=== PATIENT | female | born 1985 | race Two or more races ===

== ENCOUNTER 2016-12-27 08:58 | Emergency (ER) | payer OTHER ==
[2016-12-27 09:01] VITALS: TEMP 98.3; BMI 31.7
--- NOTE | 2016-12-27 11:02 | PDOC ---
History of Present Illness - General Chief Complaint: Vaginal Bleeding Stated Complaint: VAGINAL BLEEDING Time Seen by Provider: 12/27/16 10:26 History Source: Patient Exam Limitations: No Limitations - History of Present Illness Initial Comments: 12/27/16 11:02 My chief complaint: Severe rectal pain 2 days with menstruation History of present illness: She is a 31-year-old female with a history of uterine fibroids here today complaining of severe rectal pain 2 days with menstruation. Patient reports that she has gotten severe rectal pain with menstruation for years. Patient reports that her period is regular monthly and started 2 days ago. Patient reports that she has bowel movement 3 or 4 times one week that is hard and brown with no rectal bleeding. Patient reports that she has been seen in the past at [facility] was given a prescription for glycerin suppositories the patient is without any relief of symptoms. Patient reports having taken Naprosyn and ibuprofen today with minimal relief of pain. Patient denies that pain is worse with passage of bowel movement. Patient reports having fibroids laser surgery June 2016. 12/27/16 11:24 12/27/16 16:59 12/27/16 18:05 Timing/Duration: intermittent (when having menses for years ) Severity: severe (rectal pain) Associated Symptoms: reports: other (straining with BM) Past History - Past Medical History Allergies/Adverse Reactions: Allergies Allergy/AdvReac Type Severity Reaction Status Date / Time No Known Allergies Allergy Verified 12/27/16 09:01 Home Medications: Ambulatory Orders Polyethylene Glycol 3350 [Miralax 255 gm Btl -] 17 gm PO DAILY #1 bottle Tramadol HCl [Ultram] 50 mg PO Q8H PRN #6 tablet MDD 3 12/27/16 Disorders: Yes (fibroids ) - Surgical History Other Surgical History: 12/27/16 11:20 C section lazor surgery for fibroids 07/0912/27/16 11:20 - Suicide/Smoking/Psychosocial Hx Smoking History: Current some day smoker Number of Cigarettes Smoked Daily: 2 Information on smoking cessation initiated: Yes 'Breaking Loose' booklet given: 12/27/16 Hx Alcohol Use: No Drug/Substance Use Hx: No Substance Use Type: None Review of Systems - Review of Systems Able to Perform ROS?: Yes Constitutional: No: Symptoms Reported HEENTM: No: Symptoms Reported Respiratory: No: Symptoms reported Cardiac (ROS): No: Symptoms Reported ABD/GI: Yes: Other (hard stool brown, straining with BM, BM EVERY 2-3 DAYS ) : Yes: Other (rectal pain when having menses for years) Musculoskeletal: No: Symptoms Reported Integumentary: No: Symptoms Reported Neurological: No: Symptoms reported *Physical Exam - Vital Signs Last Vital Signs Temp Pulse Resp BP Pulse Ox 98.3 F 60 18 144/93 100 12/27/16 08:59 12/27/16 08:59 12/27/16 08:59 12/27/16 08:59 12/27/16 08:59 - Physical Exam General Appearance: Yes: Appropriately Dressed Respiratory/Chest: positive: Lungs Clear, Normal Breath Sounds. negative: Chest Tender, Respiratory Distress Cardiovascular: positive: Regular Rhythm, Regular Rate, S1, S2 Gastrointestinal/Abdominal: positive: Normal Bowel Sounds, Tender (SUPRAPUBIC), Soft, Tenderness (SUPRAPUBIC AREA). negative: Organomegaly, Increased Bowel Sounds, Decreased BS, Distended, Guarding, Rebound, Hernia, Mass, Hepatomegaly, Spleenomegaly Rectal Exam: positive: normal rectal tone, other (no anal fissure noted,). negative: decreased tone, hemorrhoids Integumentary: positive: Normal Color Neurologic: positive: Alert, Normal Response, Responsive Medical Decision Making - Medical Decision Making 12/27/16 11:26 She is a 31-year-old female with a history of uterine fibroids here today complaining of severe rectal pain 2 days with menstruation. Patient reports that she has gotten severe rectal pain with menstruation 4 years. Patient reports that her period is regular monthly and started 2 days ago. Patient reports that she has bowel movement 3 or 4 times one week that is hard and brown with no rectal bleeding. Patient reports that she has been seen in the past at [facility] was given a prescription for glycerin suppositories the patient is without any relief of symptoms. Patient reports having taken Naprosyn and ibuprofen today with minimal relief of pain. Patient denies that pain is worse with passage of bowel movement. Patient reports having fibroids laser surgery June 2016. R/O RECURRENT FIBROIDS R/O HEMORRHOIDS no external hemorrhoids noted constipation PLAN: URINE HCG negative ACETAMINOPHEN 975MG PO hhemocult not done due to vaginal bleeding 12/27/16 13:54 follow up with [facility] Follow up with gastrointestinal doctor miralax 17 gm in 8 oz water daily 12/27/16 14:28 pt. urinated forgot to give sample US pelvic/abdomen 2.7 cm uterine lesion most suggestive of leiomyomas per Dr. Goode 12/27/16 17:01 12/27/16 17:15 Toradol 60 mg IM now 12/27/16 17:17 12/27/16 18:05 feeling less pain presenty pt. requesting something stronger than ibuprofen for pain at home will give ultram 50 mg every 8 hrs prn severe pain # 6 12/27/16 18:07 12/28/16 11:49 *DC/Admit/Observation/Transfer Diagnosis at time of Disposition: Fibroid, uterine Qualifiers: Uterine leiomyoma location: unspecified location Qualified Code(s): D25.9 - Leiomyoma of uterus, unspecified Constipation Qualifiers: Constipation type: unspecified constipation type Qualified Code(s): K59.00 - Constipation, unspecified - Discharge Dispostion Disposition: HOME Condition at time of disposition: Stable - Prescriptions Prescriptions: Polyethylene Glycol 3350 [Miralax 255 gm Btl -] 17 gm PO DAILY #1 bottle Tramadol HCl [Ultram] 50 mg PO Q8H PRN #6 tablet MDD 3 PRN Reason: Severe Pain - Referrals Referrals: Jose Alfredo Moreno MD [Staff Physician] - - Patient Instructions Additional Instructions: [facility] as [facility] Follow up gastrointestinal doctor for further evaluation due to your constipation Drink a lot a fluids especially water at least 8 glasses daily and eat fresh fruits and vegetables daily Ibuprofen as needed as directed by boxing instructor for pain Return if symptoms or new symptoms develop Patient voiced understanding of discharge instructions and all questions were answered Seguimiento con los colegios de ginecologa law pronto bakari sea posible Seguimiento mdico gastrointestinal para elayne evaluacin posterior debido a kaur estreimiento Sonia mucho lquidos, especialmente agua por lo menos 8 vasos diarios y comer frutas y verduras frescas diariamente Ibuprofen cuando sea necesario bakari lo indique el fabricante para el dolor Regresar si aparecen sntomas o nuevos sntomas Comprensin del paciente sobre las instrucciones de marshall y todas las preguntas fueron contestadas
[2016-12-27] MEDS ORDERED: ACETAMINOPHEN 325 MG TABLET (FP) PO ONE (11:18)
[2016-12-27] MEDS ORDERED: ACETAMINOPHEN 325 MG TABLET (FP) ONE (11:39)
[2016-12-27] MEDS ORDERED: KETOROLAC TROMETHAMINE 60 MG/2 ML VIAL IM ONE (17:15)
[2016-12-27] MEDS ORDERED: KETOROLAC TROMETHAMINE 60 MG/2 ML VIAL ONE (17:30)
--- NOTE | 2016-12-27 17:38 | PDOC ---
*Physical Exam - Vital Signs Last Vital Signs Temp Pulse Resp BP Pulse Ox 98.3 F 60 18 144/93 100 12/27/16 08:59 12/27/16 08:59 12/27/16 08:59 12/27/16 08:59 12/27/16 08:59 ED Treatment Course - ADDITIONAL ORDERS Additional order review: Laboratory Results 12/27/16 11:17 Urine HCG, Qual Negative - Medications Given in the ED: ED Medications Discontinued Medications Generic Name Dose Route Start Last Admin Trade Name Alex PRN Reason Stop Dose Admin Acetaminophen 975 mg 12/27/16 11:18 12/27/16 11:44 Tylenol - PO 12/27/16 11:19 975 mg ONCE ONE Administration Ketorolac Tromethamine 60 mg 12/27/16 17:15 12/27/16 17:35 Toradol Injection - IM 12/27/16 17:16 60 mg NOW ONE Administration Medical Decision Making - Medical Decision Making 12/27/16 17:37 Pt seen by the Advanced Practice Provider under my direct supervision Ancillary studies reviewed I agree with plan as outlined by the Advanced Practice Provider *DC/Admit/Observation/Transfer Diagnosis at time of Disposition: Fibroid, uterine Qualifiers: Uterine leiomyoma location: unspecified location Qualified Code(s): D25.9 - Leiomyoma of uterus, unspecified Constipation Qualifiers: Constipation type: unspecified constipation type Qualified Code(s): K59.00 - Constipation, unspecified - Discharge Dispostion Condition at time of disposition: Stable - Prescriptions Prescriptions: Polyethylene Glycol 3350 [Miralax 255 gm Btl -] 17 gm PO DAILY #1 bottle - Referrals Referrals: Jose Alfredo Moreno MD [Staff Physician] - - Patient Instructions Additional Instructions: [facility] with [facility] as soon as possible Follow up gastrointestinal doctor for further evaluation due to your constipation Drink a lot a fluids especially water at least 8 glasses daily and eat fresh fruits and vegetables daily Ibuprofen as needed as directed by boat joiner for pain Return if symptoms or new symptoms develop Patient voiced understanding of discharge instructions and all questions were answered Seguimiento con los colegios de ginecologa law pronto bakari sea posible Seguimiento mdico gastrointestinal para elayne evaluacin posterior debido a kaur estreimiento Sonia mucho lquidos, especialmente agua por lo menos 8 vasos diarios y comer frutas y verduras frescas diariamente Ibuprofen cuando sea necesario bakari lo indique el fabricante para el dolor Regresar si aparecen sntomas o nuevos sntomas Comprensin del paciente sobre las instrucciones de marshall y todas las preguntas fueron contestadas - Post Discharge Activity
[2016-12-27 17:40] VITALS: BP 139/78; PULSE 74
== END 2016-12-27 18:00 | disposition home or self-care (01) ==
LOC: JER 08:58
PROC: 3E0233Z Introduction of Anti-inflammatory into Muscle, Percutaneous Approach (ICD-10-PCS; principal; 2016-12-27)
DX: D25.9 Leiomyoma of uterus, unspecified (principal); K59.00 Constipation, unspecified
CPT/HCPCS: 76856-TC; 84703; 99282-25

== ENCOUNTER 2017-07-02 05:59 | Emergency (ER) | payer OTHER ==
[2017-07-02 06:11] VITALS: BMI 28.5
--- NOTE | 2017-07-02 07:18 | PDOC ---
History of Present Illness - General Chief Complaint: Pain Stated Complaint: ABD PAIN Time Seen by Provider: 07/02/17 06:51 - History of Present Illness Initial Comments: 07/02/17 07:57 The patient is a 32 year old female with no significant PMH who presents for evaluation of abdominal pain. The patient reports a 1 day history of poorly described abdominal pain with radiation to her back with associated diarrhea and increased urinary frequency. The patient reports continued symptoms with poor appetite over the past 1 day prompting her presentation to the ED for evaluation. The patient otherwise denies chills, SOB, chest pain, nausea, vomiting, or vaginal discharge or bleeding. The patient's LMP was 06/12/17. Past History - Past Medical History Allergies/Adverse Reactions: Allergies Allergy/AdvReac Type Severity Reaction Status Date / Time No Known Allergies Allergy Verified 07/02/17 06:11 Home Medications: Ambulatory Orders Ondansetron [Zofran Odt -] 4 mg SL TID PRN #21 od.tablet 07/02/17 COPD: No Disorders: Yes (fibroids ) - Suicide/Smoking/Psychosocial Hx Smoking History: Never smoked Have you smoked in the past 12 months: No Number of Cigarettes Smoked Daily: 2 Information on smoking cessation initiated: No 'Breaking Loose' booklet given: 12/27/16 Hx Alcohol Use: No Drug/Substance Use Hx: No Substance Use Type: None Review of Systems - Review of Systems Comments:: 07/02/17 08:11 Constitutional: Fever. No chills, fatigue, malaise HEENT: No Rhinorrhea, nasal congestion, visual changes Cardiovascular: No chest pain, syncope, palpitations, lightheadedness Respiratory: No Cough, SOB, Hemoptysis, Gastrointestinal: Abdominal pain, Diarrhea. No Nausea, Vomiting, Constipation, Melena Genitourinary: Increase urinary frequency. No Dysuria, Urgency, Hesitancy, Hematuria, Flank pain Musculoskeletal: No Myalgia, arthralgia Skin: No rashes, itching, bruising, pallor Neurologic: No Headache, Dizziness, Numbness, Weakness, or Tingling Psychiatric: No Hallucinations. No SI or HI *Physical Exam - Vital Signs Last Vital Signs Temp Pulse Resp BP Pulse Ox 100.5 F H 64 18 130/90 99 07/02/17 06:02 07/02/17 06:02 07/02/17 06:02 07/02/17 06:02 07/02/17 06:02 - Physical Exam Comments: 07/02/17 08:13 General Appearance: Nourished. No Apparent Distress HEENT: EOMI, BELLA. No Pharyngeal Erythema, Tonsillar Exudate, Tonsillar Erythema Neck: No Cervical Lymphadenopathy Respiratory/Chest: Lungs Clear, Normal Breath Sounds. No Crackles, Rales, Rhonchi, Wheezing Cardiovascular: Regular Rhythm, Regular Rate. No Murmur, Gallops, Rubs Gastrointestinal/Abdominal: Normal Bowel Sounds, Soft. Suprapubic tenderness to palpation. No Guarding, Rebound, Musculoskeletal: No CVA Tenderness Extremity: Normal Capillary Refill Integumentary: Normal Color, Dry, Warm Neurologic: Fully Oriented, Alert, Normal Mood/Affect, Normal Response, ED Treatment Course - LABORATORY CBC & Chemistry Diagram: 07/02/17 08:00 07/02/17 08:00 Medical Decision Making - Medical Decision Making 07/02/17 08:14 The patient is a 32 year old female with no significant PMH who presents for evaluation of abdominal pain. Differential includes but is not limited to: Pancreatitis, UTI, Gastroenteritis, infectious, metabolic derangement. Given the patient's physical exam and history, it is possible her symptoms are due to a UTI. We will obtain a cbc, cmp, ua, urine preg, lipase to evaluate further. We will treat with iv fluids and tylenol here in the ED in the meantime and continue to monitor and reassess. 07/02/17 09:43 CBC, cmp, ua, urine preg, lipase are unremarkable. The patient reports some improvement in her symptoms. It is likely her symptoms are due to a viral gastroenteritis. We are comfortable discharging the patient home at this time with primary care provider follow up. We discussed the results, plan and return precautions with the patient who voiced understanding and is agreeable with the plan. *DC/Admit/Observation/Transfer Diagnosis at time of Disposition: Viral gastroenteritis - Discharge Dispostion Disposition: HOME Condition at time of disposition: Good Admit: No - Prescriptions Prescriptions: Ondansetron [Zofran Odt -] 4 mg SL TID PRN #21 od.tablet PRN Reason: Nausea - Referrals Referrals: Tom Juarez MD [Staff Physician] - - Patient Instructions Printed Discharge Instructions: DI for Viral Gastroenteritis -- Adult Additional Instructions: Please return to the ER if you experience concerning or worsening symptoms including worsening fevers, abdominal pain, or vomiting. Your lab results were normal here in the ER. Your symptoms are likely due to a viral illness. We have sent a prescription to your pharmacy for an anti-nausea medication that you may take three times a day. Please continue to drink plenty of fluids as well. Please call to schedule a follow up appointment with your primary care provider within 2-3 days to discuss your ER visit and further management of your symptoms. Por favor, regrese a la mary de emergencias si experimenta problemas o empeoramiento de los sntomas incluyendo empeoramiento de las fiebres, dolor abdominal o vmitos. Los resultados de tu laboratorio fueron normales aqu en urgencias. Ashly s ntomas probablemente se deban a elayne enfermedad viral. Hemos enviado elayne prescripcin a kaur farmacia para un medicamento anti-nuseas que usted puede sheila almas veces al da. Por favor, contine bebiendo muchos lquidos tambin. Por favor llame para programar elayne brian de seguimiento con kaur proveedor de atencin primaria en un plazo de 2-3 velazquez para discutir kaur visita de urgencias y la administracin de ashly sntomas. Print Language: KOREAN - Post Discharge Activity
[2017-07-02] MEDS ORDERED: SODIUM CHLORIDE 1,000 ML IV STA (07:19)
[2017-07-02] MEDS ORDERED: ACETAMINOPHEN 1000 MG/100 ML VIAL (NON FORMULARY) IVPB ONE (07:20)
[2017-07-02] MEDS ORDERED: ACETAMINOPHEN INJECTION 100 ML IVPB ONE (08:23)
[2017-07-02 08:37] LABS: BASO % 0.1 % (0-2.0); EOS % 0.2 % (0-4.5); HEMATOCRIT 33.3 % (32.4-45.2); HEMOGLOBIN 10.5 GM/dL (10.7-15.3); LYMPH % 14.9 % (8-40); MCH 23.8 pg (25.7-33.7); MCHC 31.4 g/dl (32.0-36.0); MEAN CELL VOLUME 75.9 fl (80-96); MEAN PLT VOLUME 8.5 fl (7.5-11.1); MONO % 7.7 % (3.8-10.2); NEUT % 77.1 % (42.8-82.8); PLATELET COUNT 237 K/MM3 (134-434); RBC 4.39 M/mm3 (3.60-5.2); RDW 25.3 % (11.6-15.6)
[2017-07-02 08:59] LABS: URINE APPEARANCE CLEAR; URINE BILIRUBIN NEGATIVE (<2.0 mg/dL); URINE BLOOD NEGATIVE (NEGATIVE); URINE COLOR LTYELLOW; URINE GLUCOSE (UA) NEGATIVE (NEGATIVE); URINE KETONE NEGATIVE (NEGATIVE); URINE LEUK ESTERASE NEGATIVE (NEGATIVE); URINE NITRITE NEGATIVE (NEGATIVE); URINE UROBILINOGEN NEGATIVE mg/dL (0.2-1.0)
[2017-07-02 09:00] LABS: ALBUMIN 3.5 g/dl (3.4-5.0); ALK PHOS 76 U/L (45-117); ANION GAP 10 (8-16); BILIRUBIN,TOTAL 0.5 mg/dL (0.2-1.0); BLOOD UREA NITROGEN 7 mg/dL (7-18); CALCIUM 8.3 mg/dL (8.5-10.1); CHLORIDE 106 mmol/L (98-107); CO2 22 mmol/L (21-32); CREATININE 0.9 mg/dL (0.55-1.02); GLUCOSE,RANDOM 91 mg/dL (74-106); HCG,QUALITATIVE URINE NEGATIVE; LIPASE 157 U/L (73-393); POTASSIUM 3.8 mmol/L (3.5-5.1); SGOT/AST 17 U/L (15-37); SGPT/ALT 24 U/L (12-78); SODIUM 138 mmol/L (136-145); TOT PROT 7.4 g/dl (6.4-8.2)
[2017-07-02 09:01] LABS: URINE PROTEIN 1+ (NEGATIVE)
[2017-07-02 09:03] LABS: EPI CELLS FEW /HPF (FEW); URINE BACTERIA RARE /hpf (NONE SEEN); URINE MUCUS RARE
--- NOTE | 2017-07-02 09:41 | PDOC ---
Attending Attestation - Resident Resident Name: GenevieveJevon - ED Attending Attestation I have performed the following: I have examined & evaluated the patient, The case was reviewed & discussed with the resident, I agree w/resident's findings & plan - HPI HPI: 07/02/17 09:37 32-year-old healthy female presents with intermittent, crampy, diffuse abdominal pain since yesterday with some nausea and diarrhea. Watery and nonbloody, pain peaks prior to bowel movements and then improves after bowel movements. Nausea but no vomiting, slightly decreased appetite. No localized or persistent pain, some chills and low-grade fever, reported some urinary frequency but no dysuria or hematuria. LMP 06/15. Patient states she had a large meal at her family member's house 2 days ago, otherwise denies any sick contacts, travel, recent antibiotics. No history of recurring GI infections or surgeries other than . No other family members are ill. - Physicial Exam PE: 07/02/17 09:39 Low-grade temp 100.5, vital signs are otherwise normal Well-appearing, moist mucosa No jaundice or pallor Soft/nondistended. Diffuse discomfort to palpation without focal guarding or rebound. Bowel sounds are normal. No CVA tenderness - Medical Decision Making 07/02/17 09:39 Patient seen and evaluated with the resident. I agree with the overall evaluation, assessment, and management with the following summary of visit: 32-year-old female presents with nausea/diarrhea/abdominal cramping since yesterday. Presents with low-grade fever, otherwise hemodynamically stable and well-appearing without red flags on history or physical exam. No findings suspicious for focal infectious process, presentation seems most consistent with gastroenteritis. Rule out UTI. urine negative No leukocytosis, normal LFTs, normal lipase Feels better after Tylenol, received IV fluids, tolerating by mouth, abdomen remains benign, agrees with discharge and understands return criteria.
[2017-07-02 10:08] VITALS: BP 105/77; PULSE 85; TEMP 99.3
== END 2017-07-02 10:08 | disposition home or self-care (01) ==
LOC: JER 05:59
PROC: 3E0337Z Introduction of Electrolytic and Water Balance Substance into Peripheral Vein, Percutaneous Approach (ICD-10-PCS; principal; 2017-07-02)
PROC: 3E033NZ Introduction of Analgesics, Hypnotics, Sedatives into Peripheral Vein, Percutaneous Approach (ICD-10-PCS; 2017-07-02)
DX: A08.4 Viral intestinal infection, unspecified (principal); B97.89 Other viral agents as the cause of diseases classified elsewhere
CPT/HCPCS: 36415; 80053; 81003; 81015; 83690; 84703; 85025; 87086; 96361; 96374; 99283-25; J0131; J7030

== ENCOUNTER 2018-01-24 10:35 | Emergency (ER) | payer OTHER ==
[2018-01-24 10:59] VITALS: BP 135/83; PULSE 79; TEMP 98.8; BMI 28.5
--- NOTE | 2018-01-24 12:04 | PDOC ---
History of Present Illness - General Chief Complaint: Pain Stated Complaint: PAIN Time Seen by Provider: 01/24/18 11:43 History Source: Patient Exam Limitations: No Limitations - History of Present Illness Travel History: No Initial Comments: 01/24/18 11:59 33 yr female no past medical history with c/o rectal pain every month with her menstrual cycle for 6-7 months. pt denies abd pain. denies heavy bleeding or clots. Pt denies seeing a glass washer. Timing/Duration: reports: constant Quality: reports: moderate, stabbing Abdominal Pain Onset Location: reports: other (rectal) Past History - Past Medical History Allergies/Adverse Reactions: Allergies Allergy/AdvReac Type Severity Reaction Status Date / Time No Known Allergies Allergy Verified 01/24/18 10:57 Home Medications: Ambulatory Orders Naproxen [Naprosyn -] 500 mg PO BID PRN #14 tablet 01/24/18 COPD: No Disorders: Yes (fibroids ) - Suicide/Smoking/Psychosocial Hx Smoking History: Never smoked Have you smoked in the past 12 months: No Number of Cigarettes Smoked Daily: 2 'Breaking Loose' booklet given: 12/27/16 Hx Alcohol Use: No Drug/Substance Use Hx: No Substance Use Type: None Abd/GI Specific PMHX - Complaint Specific PMHX Colitis: No Diverticulitis: No Gall Bladder Disease: No GERD: No Hepatitis: No Irritable Bowel Synd (IBS): No Pancreatitis: No GI Ulcer Disease: No Review of Systems - Review of Systems Able to Perform ROS?: Yes Is the patient limited Thai proficient: No ABD/GI: Yes: Other (rectal pain). No: Abdominal Distended, Blood Streaked Bowels, Constipated, Diarrhea, Nausea, Poor Fluid Intake, Rectal Bleeding, Abdominal cramping : No: Symptoms Reported Musculoskeletal: No: Symptoms Reported Integumentary: No: Symptoms Reported Neurological: No: Symptoms reported *Physical Exam - Vital Signs Last Vital Signs Temp Pulse Resp BP Pulse Ox 98.8 F 79 18 135/83 100 01/24/18 10:57 01/24/18 10:57 01/24/18 10:57 01/24/18 10:57 01/24/18 10:57 - Physical Exam General Appearance: Yes: Nourished, Appropriately Dressed HEENT: positive: EOMI, BELLA Neck: positive: Supple Respiratory/Chest: positive: Lungs Clear, Normal Breath Sounds Cardiovascular: positive: Regular Rhythm, Regular Rate Female Pelvic Exam: positive: normal external exam, vaginal bleeding Gastrointestinal/Abdominal: positive: Normal Bowel Sounds, Soft. negative: Tender Rectal Exam: positive: normal rectal tone (tender on exam, no hemorrhoid), other (no evidence of abscess, neg perirectal or pilonidal tenderness ) Musculoskeletal: positive: Normal Inspection Extremity: positive: Normal Capillary Refill, Normal Inspection, Normal Range of Motion Integumentary: positive: Normal Color, Dry, Warm Neurologic: positive: Fully Oriented, Alert, Normal Mood/Affect, Normal Response , Motor Strength 07/27 ED Treatment Course - RADIOLOGY Radiology Studies Ordered: Category Date Time Status TRANSVAGINAL ULTRASOUND US [US] Stat Ultrasound 01/24/18 11:55 Ordered Medical Decision Making - Medical Decision Making 01/24/18 12:03 cc: rectal pain with menses started yesterday, this occurrs every month with menses pt states for about 6 months pt denies rectal bleeding or abd pain pt has not seen a cafe manager for this pain will r/o and get pelvic transvaginal US refer to cafe manager 01/24/18 12:06 01/24/18 14:19 pt feels better after toradol states pain 05/04 from 01/01 on arrival. results given to patient dc inst discussed pt agrees to follow with cafe manager for further care. *DC/Admit/Observation/Transfer Diagnosis at time of Disposition: Fibroid, uterine Qualifiers: Uterine leiomyoma location: unspecified location Qualified Code(s): D25.9 - Leiomyoma of uterus, unspecified Menorrhagia Qualifiers: Menorrahagia type: with regular cycle Qualified Code(s): N92.0 - Excessive and frequent menstruation with regular cycle - Discharge Dispostion Disposition: HOME Condition at time of disposition: Good - Prescriptions Prescriptions: Naproxen [Naprosyn -] 500 mg PO BID PRN #14 tablet PRN Reason: Pain - Referrals Referrals: Anita Ardon [Primary Care Provider] - Mis Miranda MD [Staff Physician] - - Patient Instructions Additional Instructions: follow with the glass washer for further management of your pain call today to make appointment take naprosyn for pain as needed return to ER for any worsening symptoms - Post Discharge Activity Forms/Work/School Notes: Back to Work
[2018-01-24] MEDS ORDERED: KETOROLAC TROMETHAMINE 60 MG/2 ML VIAL IM ONE (12:56)
[2018-01-24] MEDS ORDERED: KETOROLAC TROMETHAMINE 60 MG/2 ML VIAL ONE (13:03)
== END 2018-01-24 13:53 | disposition home or self-care (01) ==
LOC: JER 10:35 → JERFT 10:35
PROC: 3E0233Z Introduction of Anti-inflammatory into Muscle, Percutaneous Approach (ICD-10-PCS; principal; 2018-01-24)
DX: D25.9 Leiomyoma of uterus, unspecified (principal); N92.0 Excessive and frequent menstruation with regular cycle
CPT/HCPCS: 76830-TC; 84703; 96372; 99281-25

== ENCOUNTER 2018-07-20 17:41 | Emergency (ER) | payer OTHER ==
[2018-07-20 17:47] VITALS: BP 141/92; PULSE 61; TEMP 98.3; BMI 31.7
--- NOTE | 2018-07-20 19:36 | PDOC ---
History of Present Illness - General Chief Complaint: Pain Stated Complaint: STOMACH & BACK PAIN Time Seen by Provider: 07/20/18 19:32 - History of Present Illness Initial Comments: 07/20/18 19:43 The patient is a 33 year old female with no significant PMH who presents for evaluation of abdominal pain. The patient reports a 1 day history of poorly described epigastric abdominal pain with associated nausea prompting her presentation to the ED for further evaluation. She denies any exacerbating or relieving factors and otherwise denies fevers, chills, SOB, chest pain, vomiting , or changes with urination or bowel movements. Past History - Past Medical History Allergies/Adverse Reactions: Allergies Allergy/AdvReac Type Severity Reaction Status Date / Time No Known Allergies Allergy Verified 07/20/18 17:47 Home Medications: Ambulatory Orders Naproxen [Naprosyn -] 500 mg PO BID PRN #14 tablet 01/24/18 Famotidine [Pepcid -] 20 mg PO DAILY #20 tablet 07/20/18 Melatonin 3 mg PO HS 07/20/18 COPD: No Disorders: Yes (fibroids ) - Suicide/Smoking/Psychosocial Hx Smoking History: Never smoked Have you smoked in the past 12 months: No Number of Cigarettes Smoked Daily: 2 'Breaking Loose' booklet given: 12/27/16 Hx Alcohol Use: No Drug/Substance Use Hx: No Substance Use Type: None Review of Systems - Review of Systems Comments:: 07/20/18 19:46 Constitutional: No fevers, chills, fatigue, malaise HEENT: No Rhinorrhea, nasal congestion, visual changes Cardiovascular: No chest pain, syncope, palpitations, lightheadedness Respiratory: No Cough, SOB, Hemoptysis, Gastrointestinal: Abdominal pain, Nausea, No Vomiting, Constipation, Diarrhea, Melena Genitourinary: No Dysuria, Frequency, Urgency, Hesitancy, Hematuria, Flank pain Musculoskeletal: No Myalgia, arthralgia Skin: No rashes, itching, bruising, pallor Neurologic: No Headache, Dizziness, Numbness, Weakness, or Tingling Psychiatric: No Hallucinations. No SI or HI *Physical Exam - Vital Signs Last Vital Signs Temp Pulse Resp BP Pulse Ox 98.3 F 61 18 141/92 100 07/20/18 17:43 07/20/18 17:43 07/20/18 17:43 07/20/18 17:43 07/20/18 17:43 - Physical Exam Comments: 07/20/18 19:47 General Appearance: Nourished. No Apparent Distress HEENT: No Pharyngeal Erythema, Tonsillar Exudate, Tonsillar Erythema Neck: No Cervical Lymphadenopathy Respiratory/Chest: Lungs Clear, Normal Breath Sounds. No Crackles, Rales, Rhonchi, Wheezing Cardiovascular: Regular Rhythm, Regular Rate. No Murmur, Gallops, Rubs Gastrointestinal/Abdominal: Normal Bowel Sounds, Soft. Mild Epigastric tenderness to palpation. No RUQ tenderness to palpation. No Guarding, Rebound , Musculoskeletal: No CVA Tenderness Extremity: Normal Capillary Refill Integumentary: Normal Color, Dry, Warm Neurologic: Fully Oriented, Alert, Normal Mood/Affect, Normal Response, ED Treatment Course - LABORATORY CBC & Chemistry Diagram: 07/20/18 20:20 07/20/18 20:20 Medical Decision Making - Medical Decision Making 07/20/18 19:47 The patient is a 33 year old female with no significant PMH who presents for evaluation of abdominal pain. Differential includes but is not limited to: Gastritis, UTI, Gastroenteritis, Infectious, Metabolic Derangement. Given the patient's history and physical exam, we will obtain a cbc, cmp, lipase, UA, urine preg to evaluate further. We will treat with iv fluids, pepcid, zofran, maalox and continue to monitor and reassess while here in the ED. 07/20/18 23:46 CBC, cmp, lipase, ua, urine preg are unremarkable. The patient was reassessed and reports improvement in their symptoms. We are comfortable discharging the patient home in stable condition. Patient and family made aware of impression and plan, return precautions discussed including but not limited to worsening pain or symptoms, fevers, or signs of infection, chest pain, respiratory distress, inability to tolerate oral intake, dehydration, syncope, or neurologic changes. The patient is to follow up with PMD as recommended within 1 week, follow up information provided and the patient will call for an appointment. The patient is to take medications as instructed for duration of time and continue with supportive care, avoid triggers and precipitants. Patient is safe for outpatient follow-up. *DC/Admit/Observation/Transfer Diagnosis at time of Disposition: Abdominal pain Qualifiers: Abdominal location: unspecified location Qualified Code(s): R10.9 - Unspecified abdominal pain - Discharge Dispostion Disposition: HOME Condition at time of disposition: Stable - Prescriptions Prescriptions: Famotidine [Pepcid -] 20 mg PO DAILY #20 tablet - Referrals Referrals: Niyah Roblero DO [Staff Physician] - - Patient Instructions Printed Discharge Instructions: DI for Abdominal Pain-Adult Additional Instructions: 1) Please follow-up with your primary care doctor in the next 2-3 days. Please call tomorrow to schedule a follow up appointment. If you cannot follow up with your doctor within 1 week please return to the Emergency Department for any urgent issues. 2) Your laboratory results were normal here in the ER. 3) If you have any worsening of symptoms or any other concerns please return to the ER immediately. Return if worsening symptoms including fevers, headache, vomiting, visual or hearing disturbances, abdominal pain, chest pain, shortness of breath, syncope, dehydration, inability to take things by mouth/vomiting, altered mental status, or worsening concerning symptoms. 4) Please continue taking your home medications as directed. Your medications on discharge include Pepcid. 1) por favor, farzaneh un seguimiento con kaur mdico de atencin primaria en los prximos 2-3 velazquez. Por favor llame maana para programar elayne brian de seguimiento. Si no puede hacer un seguimiento con kaur mdico dentro de 1 semana, por favor regrese al Departamento de emergencias para cualquier problema urgente. 2) los resultados de kaur laboratorio fueron normales aqu en urgencias. 3) si usted tiene cualquier empeoramiento de los sntomas o cualquier otra inquietud por favor regrese a la ER inmediatamente. Regrese si empeora los sntomas incluyendo fiebres, dolor de nguyen, vmitos, alteraciones visuales o auditivas, dolor abdominal, dolor en el pecho, dificultad para respirar, sncope , deshidratacin, incapacidad para sheila las cosas por la boca/vmitos, alteracin del estado mental o empeoramiento Acerca de los sntomas. 4) por favor, siga tomando jdaen medicamentos caseros segn las indicaciones. Los medicamentos que se descargan incluyen Pepcid. - Post Discharge Activity
[2018-07-20] MEDS ORDERED: MAG HYDROX/AL HYDROX/SIMETH 30 ML UNIT-DOSE CUP PO ONE (19:38)
[2018-07-20] MEDS ORDERED: ONDANSETRON 4 MG/2 ML VIAL IVPUSH ONE (19:38)
[2018-07-20] MEDS ORDERED: SODIUM CHLORIDE 1,000 ML IV STA (19:38)
[2018-07-20] MEDS ORDERED: FAMOTIDINE 20 MG/50 ML IVPB 20 MG/50 ML MG IVPB ONE ×2 (20:00→20:22)
--- NOTE | 2018-07-20 20:02 | PDOC ---
Documentation entered by Joaquina Duque SCRIBE, acting as scribe for Taisha Manzo MD. Taisha Manzo MD: This documentation has been prepared by the [employer], SCRIBE, under my direction and personally reviewed by me in its entirety. I confirm that the documentation accurately reflects all work, treatment, procedures, and medical decision making performed by me. Attending Attestation - Resident Resident Name: Jevon Vallejo - ED Attending Attestation I have performed the following: I have examined & evaluated the patient, The case was reviewed & discussed with the resident, I agree w/resident's findings & plan - HPI HPI: 07/20/18 19:41 The patient is a 33 YOF with no PMH who presents to the ED for evaluation of epigastric pain and nausea that began yesterday. The patient denies chest pain, shortness of breath, headache and dizziness. Denies fever, chills, vomit, diarrhea and constipation. Denies dysuria, frequency, urgency and hematuria. Allergies: NKDA Social Hx: Denies toxic habits. Surgeries: None reported. - Physicial Exam PE: 07/20/18 21:41 ADULT EXAM GENERAL: Awake, alert, and fully oriented, (+) in mild distress (+) obese EYES: PERRLA, EOMI, sclera anicteric, conjunctiva clear ENT: Auricles normal inspection, hearing grossly normal, nares patent. Moist mucosa LUNGS: Breath sounds equal, clear to auscultation bilaterally. No wheezes, and no crackles HEART: Regular rate and rhythm, normal S1 and S2, no murmurs, rubs or gallops ABDOMEN: (+) minimally diffusely tender. Soft, nontender, normoactive bowel sounds. No guarding, no rebound. No masses BACK: No CVA tenderness. EXTREMITIES: (+) calf tenderness, L>R. Normal range of motion, no edema. No erythema. DP/PT pulses 2+ and symmetric. Warm and well perfused. NEUROLOGICAL: Moves all extremities. Normal speech, normal gait SKIN: Warm, Dry, normal turgor, no rashes or lesions noted. - Medical Decision Making 07/21/18 00:43 Pt has a normal exam. She has gas pains. She admits to awful diet, and admits that this is the likely cause of her anemia. Pt will be given a banana bag and she will be discharged. Her labs are normal and her UA is normal. 07/21/18 00:45 Pt felt better and she was discharged home.
[2018-07-20] MEDS ORDERED: MAG HYDROX/AL HYDROX/SIMETH 30 ML UNIT-DOSE CUP ONE (20:21)
[2018-07-20] MEDS ORDERED: ONDANSETRON 4 MG/2 ML VIAL ONE (20:22)
[2018-07-20 20:28] LABS: BASO % 0.5 % (0-2.0); EOS % 1.1 % (0-4.5); HEMATOCRIT 28.9 % (32.4-45.2); LYMPH % 49.7 % (8-40); MCH 22.6 pg (25.7-33.7); MCHC 31.3 g/dl (32.0-36.0); MEAN CELL VOLUME 72.4 fl (80-96); MEAN PLT VOLUME 8.3 fl (7.5-11.1); MONO % 8.4 % (3.8-10.2); NEUT % 40.3 % (42.8-82.8); PLATELET COUNT 267 K/MM3 (134-434); RDW 19.9 % (11.6-15.6); WHITE BLOOD COUNT 4.9 K/mm3 (4.0-10.0)
[2018-07-20 20:54] LABS: ALBUMIN 3.6 g/dl (3.4-5.0); ALK PHOS 66 U/L (45-117); ANION GAP 5 MMOL/L (8-16); BILIRUBIN,TOTAL 0.2 mg/dL (0.2-1); BLOOD UREA NITROGEN 12 mg/dL (7-18); CALCIUM 8.7 mg/dL (8.5-10.1); CHLORIDE 107 mmol/L (98-107); CO2 27 mmol/L (21-32); CREATININE 0.8 mg/dL (0.55-1.3); GLUCOSE,RANDOM 98 mg/dL (74-106); LIPASE 347 U/L (73-393); POTASSIUM 4.2 mmol/L (3.5-5.1); SGOT/AST 14 U/L (15-37); SGPT/ALT 20 U/L (13-61); SODIUM 139 mmol/L (136-145); TOT PROT 7.6 g/dl (6.4-8.2)
[2018-07-20] MEDS ORDERED: FOLIC ACID INJECTION - 1 MG, THIAMINE HCL 100 MG, MULTIVIT INJECTION ADULT 10 ML in SOD... IVPB ONE (21:18)
[2018-07-20 23:06] LABS: PH,URINE 5.5 (5.0-8.0); URINE APPEARANCE CLEAR; URINE BILIRUBIN NEGATIVE (NEGATIVE); URINE COLOR YELLOW; URINE GLUCOSE (UA) NEGATIVE (NEGATIVE); URINE KETONE NEGATIVE (NEGATIVE); URINE LEUK ESTERASE NEGATIVE (NEGATIVE); URINE NITRITE NEGATIVE (NEGATIVE); URINE PROTEIN NEGATIVE (NEGATIVE); URINE UROBILINOGEN 0.2 mg/dL (0.2-1.0)
[2018-07-20 23:11] LABS: HCG,QUALITATIVE URINE Negative
== END 2018-07-21 00:38 | disposition home or self-care (01) ==
LOC: JER 17:41
PROC: 3E033GC Introduction of Other Therapeutic Substance into Peripheral Vein, Percutaneous Approach (ICD-10-PCS; principal; 2018-07-20)
PROC: 3E033GC Introduction of Other Therapeutic Substance into Peripheral Vein, Percutaneous Approach (ICD-10-PCS; 2018-07-20)
PROC: 3E033GC Introduction of Other Therapeutic Substance into Peripheral Vein, Percutaneous Approach (ICD-10-PCS; 2018-07-20)
DX: R10.9 Unspecified abdominal pain (principal); M79.18 Myalgia, other site; M79.661 Pain in right lower leg; M79.662 Pain in left lower leg; D64.9 Anemia, unspecified
CPT/HCPCS: 36415; 80053; 81003; 83690; 84703; 85025; 96361; 96365; 96366; 96367; 96375; 99282-25; J7030

== ENCOUNTER 2019-03-25 13:53 | Emergency (ER) | payer OTHER ==
[2019-03-25 13:59] VITALS: TEMP 98.8; BMI 30.9
--- NOTE | 2019-03-25 14:02 | PDOC ---
History of Present Illness - General Chief Complaint: Vaginal Bleeding Stated Complaint: BACK PAIN/VAG.BLEED Time Seen by Provider: 03/25/19 14:02 - History of Present Illness Initial Comments: 03/25/19 14:45 34 yo F PMH via 2/2 preeclampsia, dysmenorrhea, presenting with rectal pain. Primarily Kinyarwanda speaking. States that she has this pain every time she has her period, which began 03/23/2019, but this time it is more intense, 10/10, squeezing pressure. Unassociated with bowel movements. Went to [facility] yesterday and received morphine, but this only provided her with temporary relief, causing her to come to the ED today. Further complains about nausea with one episode of nbnb vomiting this morning. Specifically denies CP, SOB, abd pain, constipation/diarrhea, fevers/chills, rectal bleeding, urinary symptoms. Endorses vaginal bleeding and rectal pressure. LMP now. Past History - Past Medical History Allergies/Adverse Reactions: Allergies Allergy/AdvReac Type Severity Reaction Status Date / Time No Known Allergies Allergy Verified 07/20/18 17:47 Home Medications: Ambulatory Orders Naproxen [Naprosyn -] 500 mg PO BID PRN #14 tablet 01/24/18 Famotidine [Pepcid -] 20 mg PO DAILY #20 tablet 07/20/18 Melatonin 3 mg PO HS 07/20/18 COPD: No Disorders: Yes (fibroids ) - Psycho Social/Smoking Cessation Hx Smoking History: Never smoked Have you smoked in the past 12 months: No Number of Cigarettes Smoked Daily: 2 Information on smoking cessation initiated: No 'Breaking Loose' booklet given: 12/27/16 Hx Alcohol Use: No Drug/Substance Use Hx: No Substance Use Type: None Review of Systems - Review of Systems Comments:: 03/25/19 14:51 GENERAL/CONSTITUTIONAL: No fever or chills. No weakness. HEAD, EYES, EARS, NOSE AND THROAT: No change in vision. No ear pain or discharge. No sore throat. CARDIOVASCULAR: No chest pain or shortness of breath. RESPIRATORY: No cough, wheezing, or hemoptysis. GASTROINTESTINAL: Nausea with one episode of vomiting, No diarrhea or constipation. GENITOURINARY: No dysuria, frequency, or change in urination. MUSCULOSKELETAL: No joint or muscle swelling or pain. No neck or back pain. SKIN: No rash NEUROLOGIC: No headache, vertigo, loss of consciousness, or change in strength/ sensation. ENDOCRINE: No increased thirst. No abnormal weight change. HEMATOLOGIC/LYMPHATIC: No anemia, easy bleeding, or history of blood clots. ALLERGIC/IMMUNOLOGIC: No hives or skin allergy. *Physical Exam - Vital Signs Last Vital Signs Temp Pulse Resp BP Pulse Ox 98.8 F 65 16 140/95 100 03/25/19 13:56 03/25/19 13:56 03/25/19 13:56 03/25/19 13:56 03/25/19 13:56 - Physical Exam 03/25/19 15:50 Gen: well-developed, well-nourished, in moderate distress Neuro: AAOX4, CN II-XII intact, FTN intact, EOMI, PERRLA, 5/5 strength, SILT HEENT: atraumatic, normocephalic, dry mucous membranes Neck: trachea midline, supple CV: regular rate, regular rhythm, no murmurs, rubs, or gallops Pulm: CTA b/l, no wheezing Abd: soft, non-distended, LUQ and LLQ tenderness Pelvis: closed os, pooled blood in the vault, no CMT or adnexal tenderness Rectal: normal tone, no hemorrhoid or fissure MSK: full ROM, intact pulses Extr: no edema, no deformities Skin: warm, dry ED Treatment Course - LABORATORY CBC & Chemistry Diagram: 03/25/19 14:55 03/25/19 14:55 Medical Decision Making - Medical Decision Making 03/25/19 14:55 Concern for intrauterine pathology vs . - CBC, CMP, lipase - UA/UC/u preg - Metoclopramide - 1L NS - Ofirmev - TVUS 03/25/19 15:38 Hgb 9.3, UA with 2+ blood, otherwise unconcerning. 03/25/19 15:49 U preg negative. Will f/u TVUS, get KUB, give toradol 15mg if patient has continued pain. 03/25/19 17:04 TVUS with small fundal fibroid measuring 3.5cm, normal endometrial stripe measuring 5.8mm, no free fluid. Also shows large complex L ovarian cyst with irregular eccentric soft tissue lesion attached to the wall measuring 3.9 X 2.7 X 3.3cm. Recommend close follow-up for resolution vs progression. Smaller complex R ovarian cyst with irregular wall measuring 1.8 X 1.4 X 1.6cm. No ovarian torsion. Discharge - Discharge Information Problems reviewed: Yes Clinical Impression/Diagnosis: Fibroid, uterine, Abdominal pain Condition: Stable Disposition: HOME - Follow up/Referral Referrals: Bethanie Penaloza [Primary Care Provider] - - Patient Discharge Instructions Patient Printed Discharge Instructions: Constipation Additional Instructions: Take neby-[id number] MiraLAX as directed on package for constipation for 3 days 1 packet once a day. Take Aleve 1 tab twice a day for the next 5 days. Follow-up with your BUILDING MAINTENANCE ENGINEER this week. Return to ED for any severe worsening symptoms or for any concerns. - Post Discharge Activity
[2019-03-25] MEDS ORDERED: ACETAMINOPHEN 1000 MG/100 ML VIAL (NON FORMULARY) IVPB ONE (14:18)
[2019-03-25] MEDS ORDERED: ONDANSETRON 4 MG/2 ML VIAL IVPUSH ONE (14:18)
[2019-03-25] MEDS ORDERED: METOCLOPRAMIDE HCL INJECTION 10 MG/2 ML VIAL IVPB ONE (14:19)
[2019-03-25] MEDS ORDERED: METOCLOPRAMIDE HCL INJECTION 10 MG/2 ML VIAL ONE (14:51)
[2019-03-25] MEDS ORDERED: ONDANSETRON 4 MG/2 ML VIAL ONE (14:51)
[2019-03-25] MEDS ORDERED: ACETAMINOPHEN INJECTION 100 ML IVPB ONE (14:51)
[2019-03-25] MEDS ORDERED: SODIUM CHLORIDE 0.9% 500 ML INFUS.BAG IV ONE (14:53)
--- NOTE | 2019-03-25 14:57 | PDOC ---
Documentation entered by Erika Hubbard SCRIBE, acting as scribe for Corbin Vega MD. Corbin Vega MD: This documentation has been prepared by the [employer] X[employer], SCRIBE, under my direction and personally reviewed by me in its entirety. I confirm that the documentation accurately reflects all work, treatment, procedures, and medical decision making performed by me. Attending Attestation - Resident Resident Name: Royce Gloria - ED Attending Attestation I have performed the following: I have examined & evaluated the patient, The case was reviewed & discussed with the resident, I agree w/resident's findings & plan, Exceptions are as noted - HPI HPI: 03/25/19 14:27 The patient is a 34 year old female with a PMH of dysmenorrhea who presents to the ED with rectal pain. The patient states she was seen at [facility] yesterday for similar symptoms and was given morphine with relief of symptoms. Pt states she endorses these symptoms when she gets her menstrual cycle. Pt states her menstrual cycle started on 03/23 but has been more intense than usual. Pt states her symptoms are associated with abdominal pain, frontal headache, nausea, and 1 episode of vomiting. Pt states she was suppose to follow up with [facility], but has not. The patient denies chest pain, SOB or dizziness. Denies fever, chills, cough, diarrhea and constipation. Denies dysuria, frequency, urgency and hematuria. Allergies:, NKDA Social Hx: Denies current smoking, drinking, or other substance usage Surgical hx: - Physicial Exam PE: 03/25/19 14:48 Vitals: Triage Vital signs reviewed General Appearance: no acute distress, well nourished well developed, Chest Wall: Nontender Cardiac: Regular rate and rhythm, no murmurs, no rubs, no gallops, Lungs: Clear to auscultation bilateral, good air movement bilaterally, Abdomen: Soft, nondistended, normal bowel sounds, nontender to palpation Extremities: Full range of motion to all extremities, no cyanosis, clubbing, or edema Skin: Warm and dry, no rashes or lesions, no petechiae Neuro: AOX3; Cranial Nerves 2-12 grossly c intact, Strength intact to all extremities, Sensation intact to all extremities, gait normal Psych: normal mood, normal affect - Medical Decision Making 03/25/19 17:55 Rectal pressure with menstrual. Not labs within normal limits feels better after Toradol KUB demonstrates constipation We will treat with NSAIDs and MiraLAX Findings, the need for follow-up and strict return instructions discussed with patient. Discharge - Discharge Information Problems reviewed: Yes Clinical Impression/Diagnosis: Constipation Qualifiers: Constipation type: unspecified constipation type Qualified Code(s): K59.00 - Constipation, unspecified Condition: Stable Disposition: HOME - Admission No - Follow up/Referral Referrals: Bethanie Penaloza [Primary Care Provider] - - Patient Discharge Instructions Patient Printed Discharge Instructions: Constipation Additional Instructions: Take [id number]-aocvzri MiraLAX as directed on package for constipation for 3 days 1 packet once a day. Take Aleve 1 tab twice a day for the next 5 days. Follow-up with your DOWEL PIN MAN this week. Return to ED for any severe worsening symptoms or for any concerns. - Post Discharge Activity
[2019-03-25 15:11] LABS: BASO % 0.4 % (0-2.0); EOS % 0.8 % (0-4.5); HEMATOCRIT 30.5 % (32.4-45.2); HEMOGLOBIN 9.3 GM/dL (10.7-15.3); LYMPH % 38.9 % (8-40); MCH 22.7 pg (25.7-33.7); MCHC 30.6 g/dl (32.0-36.0); MEAN CELL VOLUME 74.1 fl (80-96); MEAN PLT VOLUME 7.8 fl (7.5-11.1); MONO % 6.6 % (3.8-10.2); NEUT % 53.3 % (42.8-82.8); PLATELET COUNT 329 K/MM3 (134-434); RBC 4.12 M/mm3 (3.60-5.2); RDW 20.9 % (11.6-15.6); WHITE BLOOD COUNT 5.1 K/mm3 (4.0-10.0)
[2019-03-25 15:12] LABS: HYALINE CASTS 0 /lpf (0-8); URINE APPEARANCE CLEAR; URINE BACTERIA 2.4 /hpf (NEGATIVE); URINE BILIRUBIN NEGATIVE (NEGATIVE); URINE COLOR YELLOW; URINE GLUCOSE (UA) NEGATIVE (NEGATIVE); URINE KETONE NEGATIVE (NEGATIVE); URINE LEUK ESTERASE NEGATIVE (NEGATIVE); URINE NITRITE NEGATIVE (NEGATIVE); URINE PROTEIN NEGATIVE (NEGATIVE); URINE RBC 15 /hpf (0-4); URINE WBC 1 /hpf (0-5)
[2019-03-25 15:43] LABS: ALBUMIN 3.4 g/dl (3.4-5.0); BILIRUBIN,TOTAL 0.2 mg/dL (0.2-1); BLOOD UREA NITROGEN 9.4 mg/dL (7-18); CALCIUM 8.4 mg/dL (8.5-10.1); CREATININE 0.8 mg/dL (0.55-1.3); POTASSIUM 4.2 mmol/L (3.5-5.1); TOT PROT 7.1 g/dl (6.4-8.2)
[2019-03-25] MEDS ORDERED: KETOROLAC TROMETHAMINE 30 MG/1 ML VIAL IVPUSH ONE (16:18)
[2019-03-25 16:26] LABS: ANISOCYTOSIS 2+; PLATELET ESTIMATE ADEQUATE; TARGET CELLS 1+
[2019-03-25] MEDS ORDERED: KETOROLAC TROMETHAMINE 30 MG/1 ML VIAL ONE (16:29)
[2019-03-25 18:42] VITALS: BP 118/67; PULSE 72
== END 2019-03-25 18:05 | disposition home or self-care (01) ==
LOC: JER 13:53
PROC: 3E0337Z Introduction of Electrolytic and Water Balance Substance into Peripheral Vein, Percutaneous Approach (ICD-10-PCS; principal; 2019-03-25)
PROC: 3E0333Z Introduction of Anti-inflammatory into Peripheral Vein, Percutaneous Approach (ICD-10-PCS; 2019-03-25)
PROC: 3E033GC Introduction of Other Therapeutic Substance into Peripheral Vein, Percutaneous Approach (ICD-10-PCS; 2019-03-25)
PROC: 3E033NZ Introduction of Analgesics, Hypnotics, Sedatives into Peripheral Vein, Percutaneous Approach (ICD-10-PCS; 2019-03-25)
DX: D25.9 Leiomyoma of uterus, unspecified (principal); R10.9 Unspecified abdominal pain
CPT/HCPCS: 36415; 74018-TC-FY; 76830-TC; 80053; 81003; 83690; 84703; 85025; 87086; 99283-25; J0131

== ENCOUNTER 2019-09-14 11:01 | Emergency (ER) | payer OTHER ==
[2019-09-14 11:14] VITALS: BP 138/97; PULSE 82; TEMP 98.6; BMI 31.4
[2019-09-14] MEDS ORDERED: KETOROLAC TROMETHAMINE 60 MG/2 ML VIAL IM ONE ×2 (11:21→12:18)
[2019-09-14] MEDS ORDERED: LIDOCAINE 5% TOPICAL PATCH TP ONE (11:22)
[2019-09-14] MEDS ORDERED: ACETAMINOPHEN 325 MG TABLET (FP) PO ONE (11:29)
[2019-09-14] MEDS ORDERED: ACETAMINOPHEN 325 MG TABLET (FP) ONE (11:54)
[2019-09-14] MEDS ORDERED: LIDOCAINE 5% TOPICAL PATCH ONE (12:01)
[2019-09-14] MEDS ORDERED: MAG HYDROX/AL HYDROX/SIMETH 30 ML UNIT-DOSE CUP PO ONE (12:28)
[2019-09-14] MEDS ORDERED: FAMOTIDINE 20 MG/50 ML IVPB 20 MG/50 ML MG IVPB ONE ×2 (12:28→12:35)
[2019-09-14] MEDS ORDERED: KETOROLAC TROMETHAMINE 60 MG/2 ML VIAL ONE (12:35)
[2019-09-14] MEDS ORDERED: MAG HYDROX/AL HYDROX/SIMETH 30 ML UNIT-DOSE CUP ONE (12:35)
[2019-09-14] MEDS ORDERED: LIDOCAINE PATCH REMOVAL MC SCH (22:00)
[2019-09-15] MEDS ORDERED: CYCLOBENZAPRINE HCL 5 MG TABLET PO SCH (10:00)
== END 2019-09-14 12:17 | disposition left against medical advice (07) ==
LOC: JER 11:01
PROC: 3E0233Z Introduction of Anti-inflammatory into Muscle, Percutaneous Approach (ICD-10-PCS; principal; 2019-09-14)
PROC: 3E033GC Introduction of Other Therapeutic Substance into Peripheral Vein, Percutaneous Approach (ICD-10-PCS; 2019-09-14)
DX: M54.5 Low back pain (principal)
CPT/HCPCS: 76705-TC; 84703; 99285-25

== ENCOUNTER 2020-02-08 21:06 | Emergency (ER) | payer OTHER ==
[2020-02-08] MEDS ORDERED: ONDANSETRON 4 MG/2 ML VIAL IVPUSH ONE (21:28)
[2020-02-08] MEDS ORDERED: SODIUM CHLORIDE 1,000 ML IV STA (21:28)
[2020-02-08 21:40] VITALS: TEMP 97.3; BMI 30.9
[2020-02-08 22:33] LABS: URINE APPEARANCE CLEAR; URINE BILIRUBIN NEGATIVE (NEGATIVE); URINE COLOR YELLOW; URINE GLUCOSE (UA) NEGATIVE (NEGATIVE); URINE KETONE NEGATIVE (NEGATIVE); URINE LEUK ESTERASE NEGATIVE (NEGATIVE); URINE NITRITE NEGATIVE (NEGATIVE); URINE PROTEIN NEGATIVE (NEGATIVE); URINE UROBILINOGEN 0.2 mg/dL (0.2-1.0)
[2020-02-08] MEDS ORDERED: IBUPROFEN 600 MG TABLET (FP) PO ONE ×2 (23:00→23:18)
[2020-02-08 23:04] LABS: BASO % 0.9 % (0-2.0); HEMATOCRIT 32.5 % (32.4-45.2); LYMPH % 37.1 % (8-40); MCH 24.4 pg (25.7-33.7); MCHC 30.6 g/dl (32.0-36.0); MEAN CELL VOLUME 79.6 fl (80-96); MEAN PLT VOLUME 8.6 fl (7.5-11.1); MONO % 8.4 % (3.8-10.2); NEUT % 52.6 % (42.8-82.8); PLATELET COUNT 308 K/MM3 (134-434); RBC 4.08 M/mm3 (3.60-5.2); RDW 21.2 % (11.6-15.6); WHITE BLOOD COUNT 4.6 K/mm3 (4.0-10.0)
[2020-02-08 23:24] LABS: POTASSIUM 4.8 mmol/L (3.5-5.1)
[2020-02-08 23:26] LABS: CALCIUM 8.8 mg/dL (8.5-10.1)
[2020-02-08 23:27] LABS: ALBUMIN 3.4 g/dl (3.4-5.0); BLOOD UREA NITROGEN 13.7 mg/dL (7-18)
[2020-02-08 23:29] LABS: CREATININE 0.9 mg/dL (0.55-1.3)
[2020-02-08 23:31] LABS: BILIRUBIN,TOTAL 0.3 mg/dL (0.2-1); TOT PROT 7.6 g/dl (6.4-8.2)
[2020-02-09 01:31] VITALS: BP 132/89; PULSE 65
[2020-02-09 06:30] LABS: ANISOCYTOSIS 2+; MACROCYTOSIS 0; PLATELET ESTIMATE NORMAL
== END 2020-02-09 01:32 | disposition home or self-care (01) ==
LOC: JER 21:06
PROC: 3E033NZ Introduction of Analgesics, Hypnotics, Sedatives into Peripheral Vein, Percutaneous Approach (ICD-10-PCS; principal; 2020-02-08)
PROC: 3E0337Z Introduction of Electrolytic and Water Balance Substance into Peripheral Vein, Percutaneous Approach (ICD-10-PCS; 2020-02-08)
DX: R10.12 Left upper quadrant pain (principal); Z11.59 Encounter for screening for other viral diseases
CPT/HCPCS: 36415; 71046-TC-FY; 80053; 81003; 83690; 84703; 85025; 87070; 87086; 87880; 93005; 93010; 99285-25; C9803; U0003

== ENCOUNTER 2020-06-30 05:37 | Emergency (ER) | payer OTHER ==
[2020-06-30 05:59] VITALS: TEMP 98.4; BMI 31.7
[2020-06-30 06:37] LABS: CHLORIDE 108 mmol/L (98-107); SODIUM 133 mmol/L (136-145)
[2020-06-30 06:39] LABS: ALBUMIN 3.2 g/dl (3.4-5.0); BLOOD UREA NITROGEN 9.6 mg/dL (7-18); CALCIUM 8.3 mg/dL (8.5-10.1); CO2 26 mmol/L (21-32)
[2020-06-30 06:40] LABS: GLUCOSE,RANDOM 84 mg/dL (74-106)
[2020-06-30 06:42] LABS: SGPT/ALT 29 U/L (13-61)
[2020-06-30 06:43] LABS: SGOT/AST 121 U/L (15-37)
[2020-06-30 06:44] LABS: BILIRUBIN,TOTAL 0.4 mg/dL (0.2-1); TOT PROT 7.8 g/dl (6.4-8.2)
[2020-06-30 06:45] LABS: ALK PHOS 61 U/L (45-117)
[2020-06-30 06:52] LABS: BASO % 0.3 % (0-2.0); EOS % 0.8 % (0-4.5); HEMATOCRIT 25.6 % (32.4-45.2); HEMOGLOBIN 7.8 GM/dL (10.7-15.3); LYMPH % 29.3 % (8-40); MCH 21.9 pg (25.7-33.7); MCHC 30.6 g/dl (32.0-36.0); MEAN CELL VOLUME 71.6 fl (80-96); MEAN PLT VOLUME 8.2 fl (7.5-11.1); MONO % 7.4 % (3.8-10.2); NEUT % 62.2 % (42.8-82.8); PLATELET COUNT 333 K/MM3 (134-434); RBC 3.57 M/mm3 (3.60-5.2); RDW 22.6 % (11.6-15.6); WHITE BLOOD COUNT 5.6 K/mm3 (4.0-10.0)
[2020-06-30 07:03] LABS: ANION GAP 0 MMOL/L (8-16); POTASSIUM > 10.0 mmol/L (3.5-5.1)
[2020-06-30 08:08] LABS: EPI CELLS 34 /uL (0-25.1); HYALINE CASTS 2 /uL (0-3.1); PH,URINE 5.5 (5.0-8.0); URINE APPEARANCE CLOUDY; URINE BACTERIA 166 /uL (0-1359); URINE BILIRUBIN NEGATIVE (NEGATIVE); URINE COLOR RED; URINE GLUCOSE (UA) NEGATIVE (NEGATIVE); URINE KETONE NEGATIVE (NEGATIVE); URINE LEUK ESTERASE 1+ (NEGATIVE); URINE NITRITE NEGATIVE (NEGATIVE); URINE PROTEIN 1+ (NEGATIVE); URINE RBC 9936 /uL (0-23.9); URINE UROBILINOGEN 0.2 mg/dL (0.2-1.0); URINE WBC 88 /uL (0-25.8)
[2020-06-30] MEDS ORDERED: ACETAMINOPHEN 325 MG TABLET (FP) PO ONE (09:00)
[2020-06-30] MEDS ORDERED: ACETAMINOPHEN 325 MG TABLET (FP) ONE (09:03)
[2020-06-30] MEDS ORDERED: IBUPROFEN 600 MG TABLET (FP) PO ONE ×2 (09:03→09:11)
[2020-06-30 09:51] LABS: POTASSIUM 4.1 mmol/L (3.5-5.1)
[2020-06-30 09:53] LABS: BLOOD UREA NITROGEN 8.9 mg/dL (7-18)
[2020-06-30 09:55] LABS: CALCIUM 8.9 mg/dL (8.5-10.1)
[2020-06-30 09:57] LABS: CREATININE 0.9 mg/dL (0.55-1.3)
[2020-06-30 10:12] VITALS: BP 139/78; PULSE 654
[2020-06-30 10:32] LABS: ANISOCYTOSIS 3+; MACROCYTOSIS 0; PLATELET ESTIMATE NORMAL; TARGET CELLS 1+
== END 2020-06-30 10:13 | disposition home or self-care (01) ==
LOC: JER 05:37
DX: K62.89 Other specified diseases of anus and rectum (principal)
CPT/HCPCS: 36415; 80048; 80053; 81003; 84703; 85025; 87086; 99283-25

== ENCOUNTER 2020-10-19 23:30 | Emergency (ER) | payer OTHER ==
[2020-10-19] MEDS ORDERED: DEXAMETHASONE 4 MG TABLET (FP) PO ONE (23:45)
[2020-10-19] MEDS ORDERED: DIPHENHYDRAMINE HCL 25 MG/10 ML CUP PO ONE (23:50)
[2020-10-19 23:52] VITALS: BP 136/91; PULSE 76; TEMP 98.8; BMI 30.9
[2020-10-20] MEDS ORDERED: DEXAMETHASONE 4 MG TABLET (FP) ONE (00:19)
[2020-10-20] MEDS ORDERED: diphenhydrAMINE HCL 25 MG CAPSULE (FP) PO ONE (00:19)
== END 2020-10-20 02:21 | disposition home or self-care (01) ==
LOC: JER 23:30
DX: T78.40XA Allergy, unspecified, initial encounter (principal)
CPT/HCPCS: 93005; 93010; 99283-25

== ENCOUNTER 2020-12-18 04:01 | Emergency (ER) | payer OTHER ==
[2020-12-18 04:28] VITALS: TEMP 98.4; BMI 32.2
[2020-12-18] MEDS ORDERED: MAG HYDROX/AL HYDROX/SIMETH 30 ML UNIT-DOSE CUP PO ONE (05:09)
[2020-12-18] MEDS ORDERED: FAMOTIDINE 20 MG/50 ML IVPB 20 MG/50 ML MG IVPB ONE ×2 (05:09→05:30)
[2020-12-18] MEDS ORDERED: ONDANSETRON 4 MG/2 ML VIAL IVPUSH ONE (05:09)
[2020-12-18] MEDS ORDERED: MAG HYDROX/AL HYDROX/SIMETH 30 ML UNIT-DOSE CUP ONE (05:30)
[2020-12-18] MEDS ORDERED: ONDANSETRON 4 MG/2 ML VIAL ONE (05:30)
[2020-12-18 05:42] LABS: BASO % 0.2 % (0-2.0); EOS % 2.8 % (0-4.5); HEMATOCRIT 28.9 % (32.4-45.2); LYMPH % 41.3 % (8-40); MCH 21.2 pg (25.7-33.7); MCHC 31.1 g/dl (32.0-36.0); MEAN CELL VOLUME 68.2 fl (80-96); MEAN PLT VOLUME 7.9 fl (7.5-11.1); MONO % 7.9 % (3.8-10.2); NEUT % 47.8 % (42.8-82.8); PLATELET COUNT 361 10^3/uL (134-434); RBC 4.24 M/mm3 (3.60-5.2); RDW 20.5 % (11.6-15.6); WHITE BLOOD COUNT 5.6 K/mm3 (4.0-10.0)
[2020-12-18 05:54] LABS: CHLORIDE 106 mmol/L (98-107); SODIUM 140 mmol/L (136-145)
[2020-12-18 05:57] LABS: CALCIUM 9.1 mg/dL (8.5-10.1)
[2020-12-18 05:58] LABS: ALBUMIN 3.7 g/dl (3.4-5.0); ANION GAP 7 MMOL/L (8-16); BLOOD UREA NITROGEN 11.8 mg/dL (7-18); CO2 27 mmol/L (21-32); GLUCOSE,RANDOM 94 mg/dL (74-106); LIPASE 95 U/L (73-393)
[2020-12-18 06:01] LABS: SGOT/AST 7 U/L (15-37); SGPT/ALT 17 U/L (13-61)
[2020-12-18 06:02] LABS: BILIRUBIN,TOTAL 0.5 mg/dL (0.2-1); TOT PROT 7.8 g/dl (6.4-8.2)
[2020-12-18 06:04] LABS: ALK PHOS 66 U/L (45-117)
[2020-12-18 06:44] LABS: URINE APPEARANCE CLEAR; URINE BILIRUBIN NEGATIVE (NEGATIVE); URINE COLOR YELLOW; URINE GLUCOSE (UA) NEGATIVE (NEGATIVE); URINE KETONE NEGATIVE (NEGATIVE); URINE LEUK ESTERASE NEGATIVE (NEGATIVE); URINE NITRITE NEGATIVE (NEGATIVE); URINE PROTEIN NEGATIVE (NEGATIVE)
[2020-12-18] MEDS ORDERED: PANTOPRAZOLE SODIUM 40 MG VIAL IVPUSH ONE (07:31)
[2020-12-18] MEDS ORDERED: ACETAMINOPHEN 1000 MG/100 ML VIAL (NON FORMULARY) IVPB ONE (07:31)
[2020-12-18] MEDS ORDERED: SODIUM CHLORIDE 0.9% 500 ML INFUS.BAG IV ONE (07:31)
[2020-12-18 07:52] VITALS: BP 137/86; PULSE 57
[2020-12-18] MEDS ORDERED: ACETAMINOPHEN INJECTION 100 ML IVPB ONE (07:57)
[2020-12-18] MEDS ORDERED: PANTOPRAZOLE SODIUM 40 MG VIAL ONE (07:58)
[2020-12-18 08:48] LABS: ANISOCYTOSIS 3+; PLATELET ESTIMATE NORMAL
[2020-12-18] MEDS ORDERED: LIDOCAINE VISCOUS 2% ORAL/TOP 100 ML BOTTLE MM ONE ×2 (09:25→12:00)
[2020-12-18] MEDS ORDERED: LIDOCAINE VISCOUS 2% ORAL/TOP 15 ML UNIT-DOSE CUP ONE (11:18)
== END 2020-12-18 12:51 | disposition home or self-care (01) ==
LOC: JER 04:01
PROC: 3E033GC Introduction of Other Therapeutic Substance into Peripheral Vein, Percutaneous Approach (ICD-10-PCS; principal; 2020-12-18)
DX: R10.13 Epigastric pain (principal)
CPT/HCPCS: 36415; 74177-TC; 76705-TC; 80053; 81003; 83605; 83690; 84484; 84703; 85025; 87086; 93005; 93010; 96365; 96375; 99285-25; J0131; Q9967

== ENCOUNTER 2021-03-13 03:03 | Emergency (ER) | payer OTHER ==
[2021-03-13 03:25] VITALS: BMI 30.9
[2021-03-13 05:18] LABS: BASO % 0.3 % (0-2.0); EOS % 2.2 % (0-4.5); HEMOGLOBIN 8.1 GM/dL (10.7-15.3); MCH 20.8 pg (25.7-33.7); MCHC 30.1 g/dl (32.0-36.0); MEAN CELL VOLUME 69.1 fl (80-96); MEAN PLT VOLUME 7.9 fl (7.5-11.1); MONO % 6.3 % (3.8-10.2); NEUT % 37.2 % (42.8-82.8); PLATELET COUNT 304 10^3/uL (134-434); RBC 3.91 M/mm3 (3.60-5.2); RDW 20.8 % (11.6-15.6); WHITE BLOOD COUNT 4.5 K/mm3 (4.0-10.0)
[2021-03-13 05:39] LABS: CALCIUM 8.7 mg/dL (8.5-10.1)
[2021-03-13 05:40] LABS: ALBUMIN 3.5 g/dl (3.4-5.0); BLOOD UREA NITROGEN 13.5 mg/dL (7-18)
[2021-03-13 05:44] LABS: BILIRUBIN,TOTAL 0.3 mg/dL (0.2-1); TOT PROT 7.5 g/dl (6.4-8.2)
[2021-03-13 06:03] LABS: CREATININE 0.8 mg/dL (0.55-1.3)
[2021-03-13 08:14] LABS: PH,URINE 5.5 (5.0-8.0); URINE APPEARANCE CLEAR; URINE BILIRUBIN NEGATIVE (NEGATIVE); URINE COLOR YELLOW; URINE GLUCOSE (UA) NEGATIVE (NEGATIVE); URINE KETONE NEGATIVE (NEGATIVE); URINE LEUK ESTERASE NEGATIVE (NEGATIVE); URINE NITRITE NEGATIVE (NEGATIVE); URINE PROTEIN NEGATIVE (NEGATIVE); URINE UROBILINOGEN 0.2 mg/dL (0.2-1.0)
[2021-03-13 08:16] LABS: HCG,QUALITATIVE URINE Negative
[2021-03-13 09:06] LABS: ANISOCYTOSIS 2+; MACROCYTOSIS 0; PLATELET ESTIMATE NORMAL; TARGET CELLS 1+; TEAR DROP CELLS 1+
[2021-03-13 11:17] VITALS: BP 120/78; PULSE 55; TEMP 98.5
== END 2021-03-13 12:10 | disposition home or self-care (01) ==
LOC: JER 03:03
PROC: 3E023GC Introduction of Other Therapeutic Substance into Muscle, Percutaneous Approach (ICD-10-PCS; principal; 2021-03-13)
DX: R10.9 Unspecified abdominal pain (principal)
CPT/HCPCS: 36415; 76830-TC; 80053; 81003; 83690; 84703; 85025; 87086; 93005; 93010; 99285-25

== ENCOUNTER 2021-08-15 21:40 | Emergency (ER) | payer OTHER ==
[2021-08-15 21:56] VITALS: BMI 30.9
[2021-08-15] MEDS ORDERED: SODIUM CHLORIDE 0.9% 500 ML INFUS.BAG IV ONE (23:23)
[2021-08-15] MEDS ORDERED: KETOROLAC TROMETHAMINE 30 MG/1 ML VIAL IVPUSH ONE (23:23)
[2021-08-15] MEDS ORDERED: METOCLOPRAMIDE HCL INJECTION 10 MG/2 ML VIAL IVPUSH ONE (23:23)
[2021-08-16] MEDS ORDERED: METOCLOPRAMIDE HCL INJECTION 10 MG/2 ML VIAL ONE (00:11)
[2021-08-16] MEDS ORDERED: KETOROLAC TROMETHAMINE 30 MG/1 ML VIAL ONE (00:11)
[2021-08-16] MEDS ORDERED: ACETAMINOPHEN 1000 MG/100 ML BAG IVPB ONE (00:34)
[2021-08-16] MEDS ORDERED: ACETAMINOPHEN INJECTION 100 ML IVPB ONE (00:50)
[2021-08-16 01:03] LABS: BASO % 0.4 % (0-2.0); EOS % 1.6 % (0-4.5); HEMATOCRIT 29.3 % (32.4-45.2); HEMOGLOBIN 8.7 GM/dL (10.7-15.3); LYMPH % 44.2 % (8-40); MCH 20.4 pg (25.7-33.7); MCHC 29.8 g/dl (32.0-36.0); MEAN CELL VOLUME 68.2 fl (80-96); MEAN PLT VOLUME 8.7 fl (7.5-11.1); MONO % 8.3 % (3.8-10.2); NEUT % 45.5 % (42.8-82.8); PLATELET COUNT 386 10^3/uL (134-434); RBC 4.29 M/mm3 (3.60-5.2); RDW 22.2 % (11.6-15.6); WHITE BLOOD COUNT 5.9 K/mm3 (4.0-10.0)
[2021-08-16 01:12] LABS: CHLORIDE 106 mmol/L (98-107); SODIUM 140 mmol/L (136-145)
[2021-08-16 01:14] LABS: CALCIUM 8.8 mg/dL (8.5-10.1); GLUCOSE,RANDOM 89 mg/dL (74-106)
[2021-08-16 01:15] LABS: ALBUMIN 3.7 g/dl (3.4-5.0); ANION GAP 6 MMOL/L (8-16); BLOOD UREA NITROGEN 14.7 mg/dL (7-18); CO2 27 mmol/L (21-32)
[2021-08-16 01:17] LABS: CREATININE 0.9 mg/dL (0.55-1.3)
[2021-08-16 01:18] LABS: SGOT/AST 12 U/L (15-37); SGPT/ALT 20 U/L (13-61)
[2021-08-16 01:19] LABS: BILIRUBIN,TOTAL 0.4 mg/dL (0.2-1); TOT PROT 7.9 g/dl (6.4-8.2)
[2021-08-16 01:21] LABS: ALK PHOS 75 U/L (45-117)
[2021-08-16 03:30] VITALS: BP 113/67; PULSE 58; TEMP 98.1
[2021-08-16 03:57] LABS: ANISOCYTOSIS 2+; MACROCYTOSIS 0; OVALOCYTE 1+; ROULEAU 2+
== END 2021-08-16 04:34 | disposition home or self-care (01) ==
LOC: JER 21:40
PROC: 3E0333Z Introduction of Anti-inflammatory into Peripheral Vein, Percutaneous Approach (ICD-10-PCS; principal; 2021-08-15)
PROC: 3E0333Z Introduction of Anti-inflammatory into Peripheral Vein, Percutaneous Approach (ICD-10-PCS; 2021-08-15)
PROC: 3E033GC Introduction of Other Therapeutic Substance into Peripheral Vein, Percutaneous Approach (ICD-10-PCS; 2021-08-15)
DX: N94.6 Dysmenorrhea, unspecified (principal); R10.9 Unspecified abdominal pain
CPT/HCPCS: 36415; 80053; 84702; 85025; 99284-25

== ENCOUNTER 2022-01-25 03:08 | Emergency (ER) | payer OTHER ==
[2022-01-25 03:14] VITALS: RESP 20; BMI 30.6
[2022-01-25] MEDS ORDERED: ACETAMINOPHEN 1000 MG/100 ML BAG IVPB ONE (03:36)
[2022-01-25] MEDS ORDERED: ONDANSETRON 4 MG/2 ML VIAL IVPUSH ONE (03:36)
[2022-01-25] MEDS ORDERED: ONDANSETRON 4 MG/2 ML VIAL ONE (03:40)
[2022-01-25] MEDS ORDERED: ACETAMINOPHEN INJECTION 100 ML IVPB ONE (03:40)
[2022-01-25 04:01] LABS: BASO % 0.4 % (0-2.0); EOS % 6.6 % (0-4.5); HEMATOCRIT 27.4 % (32.4-45.2); HEMOGLOBIN 8.6 GM/dL (10.7-15.3); LYMPH % 27.3 % (8-40); MCH 21.9 pg (25.7-33.7); MCHC 31.2 g/dl (32.0-36.0); MEAN PLT VOLUME 8.2 fl (7.5-11.1); MONO % 7.4 % (3.8-10.2); NEUT % 58.3 % (42.8-82.8); PLATELET COUNT 322 10^3/uL (134-434); RBC 3.91 M/mm3 (3.60-5.2); RDW 21.3 % (11.6-15.6)
[2022-01-25 04:23] LABS: ALBUMIN 3.4 g/dl (3.4-5.0); CALCIUM 8.3 mg/dL (8.5-10.1)
[2022-01-25 04:27] LABS: CREATININE 0.8 mg/dL (0.55-1.3)
[2022-01-25 04:28] LABS: BILIRUBIN,TOTAL 0.3 mg/dL (0.2-1)
[2022-01-25 04:29] LABS: TOT PROT 7.2 g/dl (6.4-8.2)
[2022-01-25 06:22] LABS: ANISOCYTOSIS 3+; MACROCYTOSIS 0; OVALOCYTE 1+; ROULEAU 1+
[2022-01-25] MEDS ORDERED: SODIUM CHLORIDE 0.9% 500 ML INFUS.BAG IV ONE (06:25)
[2022-01-25 07:18] VITALS: BP 118/81; PULSE 98; TEMP 98.1
[2022-01-25 12:02] LABS: HEMATOCRIT 28.1 % (32.4-45.2); HEMOGLOBIN 8.5 GM/dL (10.7-15.3); MCH 21.3 pg (25.7-33.7); MCHC 30.2 g/dl (32.0-36.0); MEAN CELL VOLUME 70.4 fl (80-96); MEAN PLT VOLUME 8.3 fl (7.5-11.1); PLATELET COUNT 306 10^3/uL (134-434); RDW 21.5 % (11.6-15.6); WHITE BLOOD COUNT 3.8 K/mm3 (4.0-10.0)
[2022-01-25] MEDS ORDERED: IBUPROFEN 600 MG TABLET (FP) PO ONE ×2 (12:31→12:38)
== END 2022-01-25 15:02 | disposition home or self-care (01) ==
LOC: JER 03:08
PROC: 3E033GC Introduction of Other Therapeutic Substance into Peripheral Vein, Percutaneous Approach (ICD-10-PCS; principal; 2022-01-25)
DX: R10.2 Pelvic and perineal pain (principal)
CPT/HCPCS: 0241U-QW; 36415; 76830-TC; 80053; 83690; 84703; 85025; 85027; 86850; 86900; 86901; 99284-25

== ENCOUNTER 2022-07-24 16:52 | Emergency (ER) | payer OTHER ==
[2022-07-24 17:03] VITALS: BP 147/90; PULSE 78; RESP 18; TEMP 98; BMI 28.7
[2022-07-24] MEDS ORDERED: ACETAMINOPHEN 500 MG TABLET (FP) PO ONE (18:16)
[2022-07-24] MEDS ORDERED: ACETAMINOPHEN 500 MG TABLET (FP) ONE (18:22)
== END 2022-07-24 18:48 | disposition home or self-care (01) ==
LOC: JERFT 16:52
DX: J01.90 Acute sinusitis, unspecified (principal); R09.81 Nasal congestion; J02.0 Streptococcal pharyngitis; Z20.822 Contact with and (suspected) exposure to COVID-19
CPT/HCPCS: 0241U-QW; 87651; 99283-25

== ENCOUNTER 2023-07-15 22:46 | Emergency (ER) | payer OTHER ==
[2023-07-15 22:51] VITALS: BP 151/82; PULSE 94; RESP 20; TEMP 98.4; BMI 27.4
[2023-07-15 23:49] LABS: HEMATOCRIT 26.6 % (32.4-45.2); MCH 20.5 pg (25.7-33.7); MCHC 29.9 g/dl (32.0-36.0); MEAN CELL VOLUME 68.7 fl (80-96); MEAN PLT VOLUME 7.4 fl (7.5-11.1); PLATELET COUNT 351 10^3/uL (134-434); RBC 3.88 M/mm3 (3.60-5.2); WHITE BLOOD COUNT 5.6 K/mm3 (4.0-10.0)
== END 2023-07-16 01:07 | disposition home or self-care (01) ==
LOC: JER 22:46
DX: R11.2 Nausea with vomiting, unspecified (principal); R51.9 Headache, unspecified; R53.83 Other fatigue; D64.9 Anemia, unspecified; Z32.02 Encounter for pregnancy test, result negative
CPT/HCPCS: 36415; 84703; 85027; 99283-25

== ENCOUNTER 2023-07-26 23:16 | Emergency (ER) | payer OTHER ==
[2023-07-26 23:29] VITALS: BP 158/103; PULSE 104; RESP 20; TEMP 98; BMI 28.1
[2023-07-27] MEDS ORDERED: MAG HYDROX/AL HYDROX/SIMETH 30 ML UNIT-DOSE CUP ONE ×2 (00:47→04:53)
[2023-07-27] MEDS ORDERED: ONDANSETRON 4 MG/2 ML VIAL ONE (00:48)
[2023-07-27] MEDS ORDERED: FAMOTIDINE 10 MG/ML VIAL IVPB ONE (00:50)
[2023-07-27] MEDS: FAMOTIDINE 20 MG/50 ML IVPB 20 MG/50 ML MG IVPB ONE (01:13)
[2023-07-27] MEDS: MAG HYDROX/AL HYDROX/SIMETH 30 ML UNIT-DOSE CUP PO ONE ×2 (01:13→05:16)
[2023-07-27] MEDS: ONDANSETRON 4 MG/2 ML VIAL IVPUSH ONE (01:14)
[2023-07-27 01:22] LABS: HEMATOCRIT 29.7 % (32.4-45.2); HEMOGLOBIN 9.1 GM/dL (10.7-15.3); MCH 20.6 pg (25.7-33.7); MCHC 30.5 g/dl (32.0-36.0); MEAN CELL VOLUME 67.6 fl (80-96); MEAN PLT VOLUME 8.6 fl (7.5-11.1); PLATELET COUNT 402 10^3/uL (134-434); RDW 20.3 % (11.6-15.6)
[2023-07-27] MEDS ORDERED: ACETAMINOPHEN INJECTION 100 ML IVPB ONE (01:41)
[2023-07-27 01:42] LABS: POTASSIUM 4.5 mmol/L (3.5-5.1)
[2023-07-27 01:44] LABS: ALBUMIN 3.8 g/dl (3.4-5.0); BLOOD UREA NITROGEN 14.2 mg/dL (7-18); CALCIUM 9.6 mg/dL (8.5-10.1)
[2023-07-27 01:47] LABS: CREATININE 0.9 mg/dL (0.55-1.3)
[2023-07-27 01:49] LABS: BILIRUBIN,TOTAL 0.9 mg/dL (0.2-1); TOT PROT 8.6 g/dl (6.4-8.2)
[2023-07-27] MEDS: ACETAMINOPHEN 1000 MG/100 ML BAG IVPB ONE (01:49)
[2023-07-27 02:10] LABS: ANISOCYTOSIS 2+; MACROCYTOSIS 1+
[2023-07-27] MEDS ORDERED: DICYCLOMINE HCL 20 MG/2 ML AMPUL IM ONE (03:58)
[2023-07-27] MEDS ORDERED: FAMOTIDINE 10 MG TABLET PO ONE (04:41)
[2023-07-27 04:47] LABS: PH,URINE 5.5 (5.0-8.0); URINE APPEARANCE CLEAR; URINE BILIRUBIN NEGATIVE (NEGATIVE); URINE COLOR YELLOW; URINE GLUCOSE (UA) NEGATIVE (NEGATIVE); URINE KETONE 1+ (NEGATIVE); URINE LEUK ESTERASE NEGATIVE (NEGATIVE); URINE NITRITE NEGATIVE (NEGATIVE); URINE PROTEIN TRACE (NEGATIVE); URINE UROBILINOGEN 0.2 mg/dL (0.2-1.0)
== END 2023-07-27 05:15 | disposition home or self-care (01) ==
LOC: JER 23:16
PROC: 3E033GC Introduction of Other Therapeutic Substance into Peripheral Vein, Percutaneous Approach (ICD-10-PCS; principal; 2023-07-27)
PROC: 3E033GC Introduction of Other Therapeutic Substance into Peripheral Vein, Percutaneous Approach (ICD-10-PCS; 2023-07-27)
PROC: 3E033NZ Introduction of Analgesics, Hypnotics, Sedatives into Peripheral Vein, Percutaneous Approach (ICD-10-PCS; 2023-07-27)
DX: R10.84 Generalized abdominal pain (principal); R93.3 Abnormal findings on diagnostic imaging of other parts of digestive tract; R11.2 Nausea with vomiting, unspecified; Z20.822 Contact with and (suspected) exposure to COVID-19
CPT/HCPCS: 0241U-QW; 36415; 71046-TC-FY; 76705-TC; 80053; 81003; 83690; 84484; 85025; 87086; 93005; 93010; 99285-25; J0131